=== PATIENT | female | born 1975 | race Caucasian/White ===

== ENCOUNTER 2022-03-30 07:56 | Outpatient (REF) | payer OTHER, SELFPAY ==
[2022-03-30 08:36] LABS: COVID-19 Test Negative (Negative)
== END 2022-03-30 07:57 | disposition home or self-care (01) ==
LOC: HO.LAB 07:56
PROVIDERS: Visit Provider Internal Medicine
DX: Z20.822 Contact with and (suspected) exposure to COVID-19 (principal)
CPT/HCPCS: 87635; C9803

== ENCOUNTER 2022-05-11 08:40 | Outpatient (REF) | payer OTHER, SELFPAY ==
[2022-05-11 09:21] LABS: COVID-19 Test Negative (Negative); IDNOW Serial# 16C4AD1C
== END 2022-05-11 08:41 | disposition home or self-care (01) ==
LOC: HO.LAB 08:40
PROVIDERS: Visit Provider Internal Medicine
DX: Z20.822 Contact with and (suspected) exposure to COVID-19 (principal)
CPT/HCPCS: 87635; C9803